=== PATIENT | male | born 1975 | race Caucasian/White ===

== ENCOUNTER 2018-11-09 15:17 | Emergency (ER) | payer OTHER ==
[~2018-11-09] VITALS: Ht 177.8 cm; Wt 95.3 kg
[2018-11-09] MEDS ORDERED: AMOXICILLIN 50500 MG PO (15:37)
[2018-11-09 16:16] VITALS: BP 160/77
== END 2018-11-09 16:16 | disposition home or self-care (01) ==
LOC: M.ERS 15:17
DX: H66.93 Otitis media, unspecified, bilateral (principal)